=== PATIENT | female | born 1950 | race Two or more races ===

== ENCOUNTER 2021-06-25 19:57 | Emergency (ER) | payer MEDICAID ==
[~2021-06-25] VITALS: Ht 142.2 cm; Wt 54.9 kg
[2021-06-25] MEDS ORDERED: HALOPERIDOL LACTATE INJ 5 MG/ML VIAL ONE (20:22)
[2021-06-25] MEDS: IV NS 0.9% 1,000 ML BAG IV ONE (20:25)
[2021-06-25] MEDS: HALOPERIDOL LACTATE INJ 5 MG/ML VIAL IM ONE (20:25)
--- NOTE | 2021-06-25 20:29 | NUR ---
PT BIBRA C/O ABD PAIN AND NAUSEA SOB VSS, ONLY HX IS GLAUCOMA, TAKES EYEDROPS. TO ER BED 9
[2021-06-25 20:31] LABS: BASOPHILS # (AUTO) 0.1 K/uL (0.0-0.2); BASOPHILS % (AUTO) 1.9 % (0.0-2.0); EOSINOPHILS % (AUTO) 0.4 % (0.0-6.0); HEMATOCRIT 33 % (33-45); LYMPHOCYTES # (AUTO) 0.4 K/uL (0.8-4.8); LYMPHOCYTES % (AUTO) 6.8 % (20.0-44.0); MEAN CORPUSCULAR HGB CONC 34 g/dl (31.0-36.0); MEAN CORPUSCULAR VOLUME 91 fL (82-100); MONOCYTES # (AUTO) 0.3 K/uL (0.1-1.30); MONOCYTES % (AUTO) 3.9 % (2.0-12.0); NEUTROPHILS # (AUTO) 5.7 K/uL (1.8-8.9); PLATELET COUNT (AUTO) 264 K/uL (150-450); RED BLOOD CELL COUNT(AUTO) 3.59 MIL/uL (4.0-5.2); WHITE BLOOD COUNT (AUTO) 6.5 K/uL (4.3-11.0)
[2021-06-25 20:50] LABS: CALCIUM, SERUM 8.1 mg/dL (8.5-10.1); CARBON DIOXIDE 20 mmol/L (21-32); CHLORIDE 93 mmol/L (98-107); CREATININE 0.7 mg/dL (0.6-1.3); GLUCOSE 111 mg/dL (74-106); POTASSIUM 3.9 mmol/L (3.5-5.1); SODIUM SERUM 125 mmol/L (136-145); UREA NITROGEN, BLOOD 10 mg/dL (7-18)
[2021-06-25 20:56] LABS: ALANINE AMINOTRANSFERASE 18 U/L (12-78); ALBUMIN 3.5 g/dL (3.4-5.0); ALKALINE PHOSPHATASE 70 U/L (46-116); ASPARTATE AMINOTRANSFERASE 24 U/L (15-37); BILIRUBIN,DIRECT 0.1 mg/dL (0.0-0.2); BILIRUBIN,TOTAL 0.4 mg/dL (0.2-1.0); LIPASE 200 U/L (73-393); TOTAL PROTEIN, SERUM 7.1 g/dL (6.4-8.2)
[2021-06-25] MEDS ORDERED: LIDOCAINE VISCOUS 2% UD 15 ML UDC ONE (21:05)
[2021-06-25] MEDS ORDERED: MAG HYDROX/AL HYDROX/SIMETH 30 ML UDC ONE (21:05)
[2021-06-25] MEDS: MAG HYDROX/AL HYDROX/SIMETH 30 ML UDC PO ONE (21:08)
[2021-06-25] MEDS: LIDOCAINE VISCOUS 2% UD 15 ML UDC MM ONE (21:08)
[2021-06-25] MEDS ORDERED: ONDA4TAB11 PO (21:09)
[2021-06-25] MEDS ORDERED: ONDANSETRON HCL/PF 4 MG/2 ML VIAL ONE (21:29)
[2021-06-25] MEDS ORDERED: LORAZEPAM INJ 2 MG/ML VIAL ONE (21:30)
[2021-06-25] MEDS: ONDANSETRON HCL/PF - ER 4 MG/2 ML VIAL IV ONE (21:33)
[2021-06-25] MEDS: LORAZEPAM INJ 2 MG/ML VIAL IV ONE (21:33)
[2021-06-25 22:16] VITALS: BP 104/53
--- NOTE | 2021-06-25 22:16 | NUR ---
Patient discharged to home in stable condition. Written and verbal after care instructions given. Patient verbalizes understanding of instruction.IV removed. Catheter intact and site benign. Pressure and 4x4 applied to site. No bleeding noted.
== END 2021-06-25 22:17 | disposition home or self-care (01) ==
LOC: ER 20:02
DX: E87.1 Hypo-osmolality and hyponatremia (principal); R10.13 Epigastric pain; Z90.49 Acquired absence of other specified parts of digestive tract
CPT/HCPCS: 36415; 71045; 80048; 80076; 82962; 83690; 84484; 85025; 93005; 96361; 96372; 96374; 96375; 99291; J1630; J2060; J2405; J7030